=== PATIENT | female | born 1940 | race Caucasian/White ===

== ENCOUNTER → 2016-11-07 | Outpatient (CLI) | payer MEDICARE, OTHER ==
[~2016-11-07] MED LIST: ALL DAY ALLERGY10 M2 PO; AMARYL1 MG PO; AMITRYPTYLINE PO; AMLODIPINE BESYL5 MG PO; ARTIFICIAL15 ML OPTH OU; ASPIRIN ENTERI325 M1 PO; ATENOLOL-CHLORT1 TA2 PO; ATORVASTATIN CA10 MG PO; BUMETANIDE1 MG PO; CALCIUM 600 + D1 TA1 PO; CALCIUM 600 + D1 TAB PO; CARAFATE1 G PO; CHEWABLE ASPIRI81 MG PO; CYMBALTA PO; DIOVAN160 MG PO; EYE DROP15 ML OP; FLAGYL PO; FLEXERIL10 MG PO; FOLIC ACID1 MG PO; FOLIC ACID800 MCG PO; GABAPENTIN400 M2 PO; GLIMEPIRIDE1 M1 PO; IRON1 TAB PO; KLONOPIN0.5 MG PO; LASIX20 MG PO; LORTAB 10/500 T1 TAB PO; LOSARTAN-HCTZ1 EAC1 PO; LOSARTAN-HCTZ1 EACH PO; MACROBID100 MG PO; MAGNESIUM400 M1 PO; MULTI VITAMIN1 EACH PO; NEURONTIN PO; NORCO 7.5-3251 EACH PO; ONE DAILY1 TA2 PO; POTASSIUM CL ER PO; PRESERVISION SO1 CAP PO; PRESERVISION1 EA PO; PROLIA60 MG/1 ML SQ; PROTONIX40 MG/BLIS PO; REQUIP2 MG PO; RESTORIL15 MG PO; SOOTHE XP EYE D15 ML OP; SOOTHE XP EYE D15 ML OU; THERA TEARS32 EA OU; TRAMADOL HCL50 M1 PO; VIT B-12; VITAMIN B-121000 MC1 PO; VITAMIN B122500 MCG PO; VITAMIN D-32000 UNI1 PO; ZOFRAN PO; ZYRTEC10 M4 PO
--- NOTE | ~2016-11-07 | US84 ---
[id number] [facility] [address] [facility]. [place], [place] [address] [id number] O MR#: [id number] Acc #: [id number] NAME: HUSSEIN MONTANEZ : 1940 SEX: F STUDY DATE/TIME: 11/07/2016 9:36 UNIT: [facility]IV ROOM: STUDY DESCRIPTION: US LE Veins Complete Jerry Stdy Attending Physician: Sonali Del Real A.P.R.N. Referring Physician: Sonali Del Real A.P.R.N. Ordering Physician: Sonali Del Real A.P.R.N. Primary Care Physician: Guille Aleman M.D. MEDICAL IMAGING REPORT This report is preliminary unless electronic signature is present EXAM Bilateral lower extremity venous duplex 11/07/2016 HISTORY Bilateral lower extremity pain and tenderness with lower extremity edema, weeping in legs for 2 days. Pain for 6 days. History of previous lower extremity deep vein thrombosis in 2013. TECHNIQUE Venous ultrasound examination of both lower extremities was performed using grayscale, spectral Doppler and color flow Doppler imaging. FINDINGS The examination is negative. There is no evidence of deep venous thrombus from the groin to the lower calf bilaterally. Visualized greater saphenous veins are also patent. IMPRESSION Negative examination. No evidence of lower extremity deep venous thrombosis. Dictated by... Jaya Harp M.D. THIS IS AN ELECTRONICALLY VERIFIED REPORT Jaya Harp M.D. at 11/08/2016 2:22 PM AMADOR/jhonatan TD: 11/07/2016 13:19 JOB #: [id number] MEDICAL IMAGING REPORT COPY
== END | disposition home or self-care (01) ==
LOC: CNIV 09:09
DX: M79.661 Pain in right lower leg (principal); M79.662 Pain in left lower leg
CPT/HCPCS: 93970

== ENCOUNTER → 2016-12-29 | Outpatient (CLI) | payer MEDICARE, OTHER ==
--- NOTE | ~2016-12-29 | MY11 ---
[facility] A Service of [facility] RADIOLOGY TEXT RESULTS PATIENT: HUSSEIN MONTANEZ LOCATION: [facility] : 36 UNIT #: [id number] AGE: [address]: Guille Aleman MD SEX: F ORDER DR: [id number] [address] [address] [id number] O MR#: [id number] Acc #: [id number] NAME: HUSSEIN MONTANEZ : 1940 SEX: F STUDY DATE/TIME: 12/29/2016 10:06 UNIT: [facility] ROOM: STUDY DESCRIPTION: MY Mammogram Screening Dig Jerry Attending Physician: Guille Aleman M.D. Referring Physician: Guille Aleman M.D. Ordering Physician: Guille Aleman M.D. Primary Care Physician: Guille Aleman M.D. MEDICAL IMAGING REPORT This report is preliminary unless electronic signature is present. EXAM Bilateral digital screening mammogram with CAD 12/29/2016 INDICATION 76-year-old female for routine screening. No reported problems. No personal history of breast cancer. Family history positive in a maternal aunt. History of lumpectomy from the left breast in 1983. TECHNIQUE CC and MLO views of the breast were obtained and reviewed with an FDA-approved CAD device. COMPARISON 04/20/2015, 10/25/2012, 04/10/2008. FINDINGS Breast parenchyma is composed of scattered fibroglandular densities. The pattern is unchanged. There is no new dominant nodule, mass, or suspicious clustered microcalcifications. Benign calcifications are present. Faint benign nodularity bilaterally not significantly changed. IMPRESSION 1. Benign screening mammogram. 1 year follow-up recommended. Patient's over the age of 40 are entered into a reminder system with target due date for the next mammogram. BIRADS: 2 Benign findings Dictated by... Calderon Kim M.D. [facility] A Service of [facility] RADIOLOGY TEXT RESULTS PATIENT: HUSSEIN MONTANEZ LOCATION: [facility] : 36 UNIT #: [id number] AGE: [address]: Guille Aleman MD SEX: F ORDER DR: THIS IS AN ELECTRONICALLY VERIFIED REPORT Calderon Kim M.D. at 12/29/2016 5:20 PM Bonilla TD: 12/29/2016 12:07 JOB #: [id number] MEDICAL IMAGING REPORT Page 1 of 1
== END | disposition home or self-care (01) ==
LOC: SMAM 09:19
DX: Z12.31 Encounter for screening mammogram for malignant neoplasm of breast (principal); Z98.890 Other specified postprocedural states; Z80.3 Family history of malignant neoplasm of breast
CPT/HCPCS: G0202

== ENCOUNTER → 2017-01-30 | Outpatient (CLI) | payer MEDICARE, OTHER | END | disposition home or self-care (01) | LOC: CSSDAY 07:15 | DX: M81.0 Age-related osteoporosis without current pathological fracture (principal) | CPT/HCPCS: 36415; 82310; 96372; J0897 ==